=== PATIENT | female | born 1970 | race Two or more races ===

== ENCOUNTER 2022-03-18 21:18 | Emergency (ER) | payer OTHER ==
[~2022-03-18] VITALS: Ht 152.4 cm; Wt 68.2 kg
[2022-03-18] MEDS ORDERED: HYDR25TA2 PO (22:02)
[2022-03-18 22:19] VITALS: BP 145/121
== END 2022-03-18 23:07 | disposition home or self-care (01) ==
LOC: EMS 21:22
DX: I10 Essential (primary) hypertension (principal)
CPT/HCPCS: 99283; Z7502